=== PATIENT | female | born 1930 | race Two or more races ===

== ENCOUNTER 2017-05-24 14:01 | Outpatient (CLI) ==
[2017-05-24 14:09] LABS: BILIRUBIN,URINE Negative (NEGATIVE); KETONES,URINE Negative (NEGATIVE); LEUKOCYTE ESTERASE ,URINE Negative (NEGATIVE); NITRITE,URINE Negative (NEGATIVE); PH,URINE 5.5 (5-9); PROTEIN,URINE Trace (NEGATIVE); URINE, BLOOD Negative (NEGATIVE)
[2017-05-24 14:41] LABS: ADD URINE MICROSCOPIC YES
== END 2017-05-24 14:02 | disposition home or self-care (01) ==
LOC: NONPT 14:01
PROVIDERS: ATTEND Family Medicine
DX: R35.0 Frequency of micturition (principal); R30.0 Dysuria
CPT/HCPCS: 81001